=== PATIENT | male | born 1945 | race Caucasian/White ===

== ENCOUNTER 2019-08-22 08:14 | Inpatient (IN) ==
--- NOTE | 2019-08-22 08:34 | Emergency Department Note ---
SOB HPI - General Chief Complaint: Shortness of Breath/Dyspnea Stated Complaint: Sob/ cold symptoms Time Seen by Provider: 08/22/19 08:32 Source: patient Mode of arrival: ambulatory Limitations: no limitations - History of Present Illness This patient was just discharged from the emergency room 5 minutes ago and he does not feel like he would be able to make it at home on his own and comes back to be admitted for pneumonia. - Related Data Home Medications Medication Instructions Recorded Confirmed atorvastatin 40 mg tablet 40 mg PO QDAY 07/09/18 08/22/19 cetirizine 10 mg tablet 5 mg PO QDAY PRN 07/09/18 08/22/19 cholecalciferol (vitamin D3) 125 5,000 unit PO QDAY 07/09/18 08/22/19 mcg (5,000 unit) capsule cinnamon bark 500 mg capsule 500 mg PO DAILY 07/09/18 08/22/19 fenofibric acid (choline) 135 mg 135 mg PO QDAY 07/09/18 08/22/19 capsule,delayed release finasteride 5 mg tablet 5 mg PO QDAY 07/09/18 08/22/19 fluticasone propionate 50 1 spray INTRANASAL QDAY 07/09/18 08/22/19 mcg/actuation nasal spray,suspension folic acid 1 mg tablet 1 mg PO QDAY 07/09/18 08/22/19 glipizide 10 mg tablet 10 mg PO QDAY 07/09/18 08/22/19 hydrochlorothiazide 25 mg tablet 25 mg PO QDAY 07/09/18 08/22/19 levothyroxine 100 mcg capsule 100 mcg PO QDAY 07/09/18 08/22/19 lisinopril 10 mg tablet 10 mg PO QDAY 07/09/18 08/22/19 magnesium oxide 400 mg PO QDAY cap 07/09/18 08/22/19 metformin 1,000 mg tablet,extended 1,000 mg PO QPM 07/09/18 08/22/19 release 24hr metoprolol succinate 50 mg capsule 50 mg PO QDAY 07/09/18 08/22/19 sprinkle, ext. release 24 hr omeprazole 20 mg tablet,delayed 20 mg PO QDAY 07/09/18 08/22/19 release terazosin 5 mg capsule 5 mg PO QDAY 11/12/18 12/26/19 thiamine HCl (vitamin B1) 100 mg 100 mg PO QDAY 07/09/18 08/22/19 tablet Previous Rx's Medication Instructions Recorded Doxycycline Hyclate [Vibramycin] 100 mg PO BID #14 cap 08/22/19 Allergies Allergy/AdvReac Type Severity Reaction Status Date / Time shellfish derived Allergy Verified 08/22/19 08:15 Sulfa (Sulfonamide Allergy Hives Verified 08/22/19 08:15 Antibiotics) Review of Systems All systems ED: reviewed and negative except as stated. Past Medical History - Past Medical History Medical history: Reports: COPD - Social History smoking status: Current every day smoker Physical Exam Limitations: no limitations General appearance: alert Respiratory: Present: rales/crackles Neurological: Present: alert Psychiatric: Present: normal affect Skin: Present: warm, dry Course Vital Signs Temperature 97.6 F 08/22/19 08:15 Pulse Rate 106 H 08/22/19 08:15 Respiratory Rate 24 H 08/22/19 08:15 Blood Pressure 156/84 08/22/19 08:15 Pulse Oximetry (%) 96 08/22/19 08:15 Temperature 97.6 F 08/22/19 08:15 Pulse Rate 106 H 08/22/19 08:15 Respiratory Rate 24 H 08/22/19 08:15 Blood Pressure 156/84 08/22/19 08:15 Pulse Oximetry (%) 96 08/22/19 08:15 Disposition Pt seen by [facility]/PA only: No Clinical Impression: Community acquired pneumonia Disposition: Xfer As Outpt/Obs ([facility]) Condition: Good Time of Disposition: 08:34
[2019-08-22 09:49] LABS: C-Reactive Protein 2.8 mg/dl (0.0-0.8)
--- NOTE | 2019-08-22 10:02 | Internal Med History&Physical ---
Medical - H&P: [facility] Patient information: Note initiated : 08/22/19 at 10:00 am Service Date, if different from initiated Date: [] Patient: Moncho Domingo 74 y/o M admitted on 08/22/19 for Sob/ cold symptoms. Chief Complaint: [] History of present illness: Mr. Domingo is a 74 year old M Who presents the ED with 3 to 4 days of shortness of breath and coughing. Patient said he was admitted as [facility] year ago for pneumonia and states this feels similar. However, Looking at old [facility] records it was actually COPD admis velasquez which his current presentation looks more like. denies any fevers or chills or chest pain other than when he coughs. He states it started with a sore throat and went down into his chest. He has been coughing a lot but swallows his phlegm. Feels very weak. In the ED was evaluated diagnosed with pneumonia and discharged. However the patient went out to his car he felt he was just too debilitated and weak And unable to care for himself. He had significant shortness of breath while trying to walk to his car along with the severe weakness. Flu screen in the ED was negative. Oxygen got down to 89% in the ED. Review of Systems: Pertinent positives as above. Denies headache/fever/chills/nausea/vomiting/chest or abdominal pain//diarrhea. Main 10 point review of system reviewed negative Medical - H&P: PMH Medical history: Past medical history: Peripheral vascular disease with intervention in the left lower extremity by Dr. Barajas Diabetes CKD II COPD (no home O2) Tobacco abuse HTN/HLD Hypothyroidism GERD BPH Past surgical history: Stent to left lower extremity Eyelid surgery LASIK surgery Tonsillectomy Family history: States mother had thyroid disease and peptic ulcer disease Father's history unknown Social history: 3/4 DPD 4-5 drinks of liquor per day Lives by himself Medical - H&P: Meds Home Medications Medication Instructions Recorded Confirmed Type atorvastatin 40 mg tablet 40 mg PO QDAY 07/09/18 08/22/19 History cetirizine 10 mg tablet 5 mg PO QDAY PRN 07/09/18 08/22/19 History cholecalciferol (vitamin D3) 125 5,000 unit PO QDAY 07/09/18 08/22/19 History mcg (5,000 unit) capsule fenofibric acid (choline) 135 mg 135 mg PO QDAY 07/09/18 08/22/19 History capsule,delayed release finasteride 5 mg tablet 5 mg PO QDAY 07/09/18 08/22/19 History fluticasone propionate 50 1 spray INTRANASAL QDAY 07/09/18 08/22/19 History mcg/actuation nasal spray,suspension glipizide 10 mg tablet 10 mg PO QDAY 07/09/18 08/22/19 History hydrochlorothiazide 25 mg tablet 25 mg PO QDAY 07/09/18 08/22/19 History levothyroxine 100 mcg capsule 100 mcg PO QDAY 07/09/18 08/22/19 History lisinopril 10 mg tablet 10 mg PO QDAY 07/09/18 08/22/19 History magnesium oxide 400 mg PO QDAY cap 07/09/18 08/22/19 History metformin 1,000 mg tablet,extended 1,000 mg PO QPM 07/09/18 08/22/19 History release 24hr metoprolol succinate 50 mg capsule 50 mg PO QDAY 07/09/18 08/22/19 History sprinkle, ext. release 24 hr omeprazole 20 mg tablet,delayed 20 mg PO QDAY 07/09/18 08/22/19 History release terazosin 5 mg capsule 5 mg PO QDAY 07/09/18 08/22/19 History thiamine HCl (vitamin B1) 100 mg 100 mg PO QDAY 07/09/18 08/22/19 History tablet Allergies Allergy/AdvReac Type Severity Reaction Status Date / Time Sulfa (Sulfonamide Allergy Mild Hives Verified 08/22/19 10:01 Antibiotics) shellfish derived Allergy Unknown Unknown Verified 08/22/19 10:01 Medical - H&P: Exam - Constitutional Vitals: Temp Pulse Resp BP Pulse Ox 97.6 F 100 H 24 H 136/74 94 08/22/19 09:03 08/22/19 09:03 08/22/19 09:03 08/22/19 09:03 08/22/19 09:03 Exam: General: Alert, Awake, No acute Distress, obese Eyes/N/T: EOMI, PERRL, DMM Head/Neck: neck supple, normocephalic atraumatic CV: RRR, No murmurs, normal s1/s2 Pulm: b/l wheezing, mild rhonchi Abd: soft, nontender, +BS x4 Ext: no clubbing/cyanosis, 1+ b/l LE chronic edema Neuro: Alert, no focal deficits, moves all extremities, CN 2-12 grossly intact, symmetrical strength b/l upper/lower, sensations intact b/l upper/lower Skin: warm/dry Medical - H&P: Reslt - Impressions Chest x-ray with some scattered haziness, no jose luis focal filtrates Medical - H&P: A/P - Narrative A/P Narrative: A: *AECOPD (not on home O2): -PCT low *Hypoxia: improved to room air since ED *Tobacco abuse: *Leukopenia: likely related to viral illnes *Thrombocytopenia, chronic: acute on chronic likely related to infection *DM: *CKD II: *HTN/HLD: *Hypothyroidism: *GERD: *PVD w/intervention to LLE by Dr. Barajas in the past: *Obesity * P: -steroid(wean) -IS/Acapella, nebs/RT -Empiric, pending BC/SC, mrsa screen -resp viral panel -ABG -cont home ACEI/BB, hold hctz for now, prn IV meds -SSI - -pt/ot -ppx: lovenox/home ppi
[2019-08-22 10:12] LABS: Band Neutrophils % 1 % (0-10); Eosinophils % (Manual) 1 % (0-7); Lymphocytes % 37 % (15-49); Monocytes % (Manual) 12 % (1-12); Platelet Estimate DECREASED (NORMAL); RBC Morphology NORMAL (NORMAL); Segmented Neutrophils % 49 % (38-78)
[2019-08-22] MEDS ORDERED: IPRATROPIUM/ALBUTEROL 3 ML AMPUL.NEB NEB ONE (10:34)
[2019-08-22] MEDS ORDERED: DEXTROSE 31 GM ORAL.SUSP PO PRN (10:36)
[2019-08-22] MEDS ORDERED: POTASSIUM CHLORIDE 40 MEQ in DEXTROSE 5% IN WATER 500 ML IV PRN (10:36)
[2019-08-22] MEDS ORDERED: DEXTROSE 50% 50 ML VIAL IV PRN (10:36)
[2019-08-22] MEDS ORDERED: SENNOSIDES 1 TABLET PO PRN (10:36)
[2019-08-22] MEDS ORDERED: ONDANSETRON 4 MG/2 ML VIAL IV PRN (10:36)
[2019-08-22] MEDS ORDERED: ACETAMINOPHEN 325 MG TABLET PO PRN (10:36)
[2019-08-22] MEDS ORDERED: POTASSIUM CHLORIDE 20 MEQ TABLET PO PRN ×2 (10:36)
[2019-08-22] MEDS ORDERED: POLYETHYLENE GLYCOL 3350 17 GM PACKET PO PRN (10:36)
[2019-08-22] MEDS ORDERED: MAGNESIUM SULFATE 2 GM/50 ML BAG IV PRN (10:36)
[2019-08-22] MEDS ORDERED: ENALAPRILAT 1.25 MG/ML VIAL IV PRN (10:39)
[2019-08-22] MEDS ORDERED: hydrALAZINE 20 MG/ML VIAL IV PRN (10:39)
[2019-08-22 10:40] LABS: ABG Methemoglobin 0.3 % (0.4-1.5); VBG Base Excess -0.9 (-2.0-2.0); VBG Oxygen Saturation 90.1 % (40.0-70.0); VBG PCO2 46.5 mmHg (41.0-51.0); VBG PH 7.35 U (7.32-7.42); VBG PO2 81 mmHg (25-40); VBG Total CO2 26.4 mmol/L (25.0-29.0)
[2019-08-22] MEDS ORDERED: LORazepam 2 MG/ML VIAL IV PRN (10:40)
[2019-08-22] MEDS ORDERED: chlordiazePOXIDE 25 MG CAPSULE PO PRN (10:40)
[2019-08-22] MEDS ORDERED: methylPREDNISolone SOD SUCC 125 MG/2 ML VIAL IV SCH (10:42)
[2019-08-22] MEDS ORDERED: methylPREDNISolone SOD SUCC 125 MG/2 ML VIAL IV ONE (10:43)
[2019-08-22] MEDS ORDERED: 0.9 % SODIUM CHLORIDE 1,000 ML IV SCH (10:45)
--- NOTE | 2019-08-22 10:47 | Discharge Summary ---
Medical - DS: Prov Patient information: Note initiated : 08/22/19 at 10:45 am Service Date, if different from initiated Date: [] Patient: Moncho Domingo 74 y/o M admitted on 08/22/19 for Sob/ cold symptoms. Chief Complaint: [] Date of admission: 08/22/19 09:11 Discharge date: 08/23/19 Consults: 08/22/19 Consult to Physician [CONS] Stat Comment: Consulting Provider: Hudson Chang Reason For Exam: Physician to Consult Medical - DS: Meds - Discharge Medications Prescriptions: Azithromycin 500 mg PO DAILY #1 tab predniSONE [Prednisone] 10 mg PO [facility] #1 tab Active and Home Medications: Home Medications atorvastatin 40 mg tablet 40 mg PO QDAY 07/09/18 [History Confirmed 08/22/19 Last Taken 08/21/19 09:00] cetirizine 10 mg tablet 5 mg PO QDAY PRN 07/09/18 [History Confirmed 08/22/19 Last Taken 08/21/19 21:00] cholecalciferol (vitamin D3) 125 mcg (5,000 unit) capsule 5,000 unit PO QDAY 07/09/18 [History Confirmed 08/22/19 Last Taken 08/21/19 09:00] fenofibric acid (choline) 135 mg capsule,delayed release 135 mg PO QDAY 07/09/18 [History Confirmed 08/22/19 Last Taken 08/21/19 09:00] finasteride 5 mg tablet 5 mg PO QDAY 07/09/18 [History Confirmed 08/22/19 Last Taken 08/21/19 09:00] fluticasone propionate 50 mcg/actuation nasal spray,suspension 1 spray INTRANASAL QDAY 07/09/18 [History Confirmed 08/22/19 Last Taken 08/21/19 09:00] glipizide 10 mg tablet 10 mg PO QDAY 07/09/18 [History Confirmed 08/22/19 Last Taken 08/21/19 21:00] hydrochlorothiazide 25 mg tablet 25 mg PO QDAY 07/09/18 [History Confirmed 08/22/19 Last Taken 08/21/19 09:00] levothyroxine 100 mcg capsule 100 mcg PO QDAY 07/09/18 [History Confirmed 08/22/19 Last Taken 08/21/19 09:00] lisinopril 10 mg tablet 10 mg PO QDAY 07/09/18 [History Confirmed 08/22/19 Last Taken Unknown] magnesium oxide 400 mg PO QDAY cap 07/09/18 [History Confirmed 08/22/19 Last Taken Unknown] metformin 1,000 mg tablet,extended release 24hr 1,000 mg PO QPM 07/09/18 [History Confirmed 08/22/19 Last Taken Unknown] metoprolol succinate 50 mg capsule sprinkle, ext. release 24 hr 50 mg PO QDAY 07/09/18 [History Confirmed 08/22/19 Last Taken Unknown] omeprazole 20 mg tablet,delayed release 20 mg PO QDAY 07/09/18 [History Confirmed 08/22/19 Last Taken Unknown] terazosin 5 mg capsule 5 mg PO QDAY 07/09/18 [History Confirmed 08/22/19 Last Taken Unknown] thiamine HCl (vitamin B1) 100 mg tablet 100 mg PO QDAY 07/09/18 [History Confirmed 08/22/19 Last Taken Unknown] Home Medications atorvastatin 40 mg tablet 40 mg PO QDAY 07/09/18 [History Confirmed 08/22/19 Last Taken 08/21/19 09:00] cetirizine 10 mg tablet 5 mg PO QDAY PRN 07/09/18 [History Confirmed 08/22/19 Last Taken 08/21/19 21:00] cholecalciferol (vitamin D3) 125 mcg (5,000 unit) capsule 5,000 unit PO QDAY 07/09/18 [History Confirmed 08/22/19 Last Taken 08/21/19 09:00] fenofibric acid (choline) 135 mg capsule,delayed release 135 mg PO QDAY 07/09/18 [History Confirmed 08/22/19 Last Taken 08/21/19 09:00] finasteride 5 mg tablet 5 mg PO QDAY 07/09/18 [History Confirmed 08/22/19 Last Taken 08/21/19 09:00] fluticasone propionate 50 mcg/actuation nasal spray,suspension 1 spray INTRANASAL QDAY 07/09/18 [History Confirmed 08/22/19 Last Taken 08/21/19 09:00] glipizide 10 mg tablet 10 mg PO QDAY 07/09/18 [History Confirmed 08/22/19 Last Taken 08/21/19 21:00] hydrochlorothiazide 25 mg tablet 25 mg PO QDAY 07/09/18 [History Confirmed 08/22/19 Last Taken 08/21/19 09:00] levothyroxine 100 mcg capsule 100 mcg PO QDAY 07/09/18 [History Confirmed 08/22/19 Last Taken 08/21/19 09:00] lisinopril 10 mg tablet 10 mg PO QDAY 07/09/18 [History Confirmed 08/22/19 Last Taken 08/21/19 09:00] magnesium oxide 400 mg PO QDAY cap 07/09/18 [History Confirmed 08/22/19 Last Taken 08/21/19 09:00] metformin 1,000 mg tablet,extended release 24hr 1,000 mg PO QPM 07/09/18 [History Confirmed 08/22/19 Last Taken 08/21/19 21:00] metoprolol succinate 50 mg capsule sprinkle, ext. release 24 hr 50 mg PO QDAY 07/09/18 [History Confirmed 08/22/19 Last Taken 08/21/19 09:00] omeprazole 20 mg tablet,delayed release 20 mg PO QDAY 07/09/18 [History Confirmed 08/22/19 Last Taken 08/21/19 09:00] terazosin 5 mg capsule 5 mg PO QDAY 07/09/18 [History Confirmed 08/22/19 Last Taken 08/21/19 21:00] thiamine HCl (vitamin B1) 100 mg tablet 100 mg PO QDAY 07/09/18 [History Confirmed 08/22/19 Last Taken 08/21/19 09:00] Azithromycin 500 mg PO DAILY #1 tab 08/22/19 [Rx Last Taken Unknown] B-Complex with Vitamin C [Vitamin B-Complex with Vit C] 1 each PO DAILY 08/22/19 [History Confirmed 08/22/19 Last Taken 08/21/19 09:00] Metoprolol Succinate [Toprol Xl] 25 mg PO HS 08/22/19 [History Confirmed 08/22/19 Last Taken 08/21/19 21:00] predniSONE [Prednisone] 10 mg PO [facility] #1 tab 08/22/19 [Rx Last Taken Unknown] Medical - DS: Hosp Hospital Course: Mr. Domingo is a 74 year old M Who presents the ED with 3 to 4 days of shortness of breath and coughing. Patient said he was admitted as [facility] year ago for pneumonia and states this feels similar. However, Looking at old [facility] records it was actually COPD admission which his current presentation looks more like. denies any fevers or chills or chest pain other than when he coughs. He states it started with a sore throat and went down into his chest. He has been coughing a lot but swallows his phlegm. Feels very weak. In the ED was evaluated diagnosed with pneumonia and discharged. However the patient went out to his car he felt he was just too debilitated and weak And unable to care for himself. He had significant shortness of breath while trying to walk to his car along with the severe weakness. Flu screen in the ED was negative. Oxygen got down to 89% in the ED. 08/23 Patient now on room air for most of the night. Doing great improved cough. Feels like his shortness of breath is near normal. No new complaints and desires to go home. Patient responded quicker than expected to treatment and is surprisingly doing well on room air ambulating. A: *AECOPD (not on home O2): -PCT low -resp viral panel neg *Acute on chronic hypoxic resp failure: 84% on floor after transfer from ED -now back on room air *Tobacco abuse: *Leukopenia: likely related to viral illness -Improved *Thrombocytopeniam mild, chronic: acute on chronic likely related to infection -stable *DM: *CKD II: *HTN/HLD: *Hypothyroidism: *GERD: *PVD w/intervention to LLE by Dr. Barajas in the past: *Obesity * Discharge diagnosis: COPD exacerbation tobacco abuse Secondary discharge diagnosis: Diabetes chronic disease hypertension hypothyroidism GERD peripheral vascular disease obesity - Time Spent with Patient Total time spent providing and/or coordinating discharge services: Greater than 30 minutes Medical - DS: Exam - Constitutional Vitals: Vital Signs Temp Pulse Pulse Resp BP BP Pulse Ox 08/22/19 09:11 97.7 F 98 H 18 147/81 93 08/22/19 09:03 97.6 F 100 H 24 H 136/74 94 08/22/19 08:49 100 H 136/74 94 08/22/19 08:46 99 H 136/74 94 08/22/19 08:32 102 H 114/90 93 08/22/19 08:29 103 H 156/84 93 08/22/19 08:15 97.6 F 106 H 24 H 156/84 96 Intake and Output 08/21/19 08/22/19 08/22/19 21:59 05:59 13:59 Other: Weight 95.254 kg Patient Weight 08/23/19 05:59 Weight 95.254 kg Medical - DS: Data Labs on day of discharge: Labs from last 24 hours 08/22/19 08/22/19 08/22/19 10:11 08:35 08:35 Total Counted Seg Neutrophils % Band Neutrophils % Lymphocytes % Monocytes % (Manual) Eosinophils % (Manual) Platelet Estimate RBC Morphology ABG Methemoglobin 0.3 L VBG pH 7.35 VBG pCO2 46.5 VBG pO2 81 H VBG HCO3 25.0 VBG Total CO2 26.4 VBG O2 Saturation 90.1 H VBG Base Excess -0.9 Carboxyhemoglobin 4.5 H Total Hemoglobin 11.0 L O2 Delivery Level Not Reportable C-Reactive Protein 2.8 H Procalcitonin < 0.10 08/22/19 08:35 Total Counted 100 Seg Neutrophils % 49 Band Neutrophils % 1 Lymphocytes % 37 Monocytes % (Manual) 12 Eosinophils % (Manual) 1 Platelet Estimate Decreased A RBC Morphology Normal ABG Methemoglobin VBG pH VBG pCO2 VBG pO2 VBG HCO3 VBG Total CO2 VBG O2 Saturation VBG Base Excess Carboxyhemoglobin Total Hemoglobin O2 Delivery Level C-Reactive Protein Procalcitonin Medical - DS: A/P - Patient/Caregiver Discharge Instructions Activity: increase activity as tolerated Diet: Consistent Carbohydrate Prescriptions: Azithromycin 500 mg PO DAILY #1 tab predniSONE [Prednisone] 10 mg PO [facility] #1 tab - Follow up Plan Disposition: Home, Self-Care Prognosis: Fair Rehab Potential: Fair Overall status at discharge: patient is progressing back to baseline
[2019-08-22] MEDS: ENOXAPARIN 40 MG/0.4 ML SYRINGE SQ SCH (11:03)
[2019-08-22] MEDS: AZITHROMYCIN 500 MG in DEXTROSE 5% IN WATER 250 ML IV SCH (11:22)
[2019-08-22] MEDS: INSULIN LISPRO 1 UNIT/0.01 ML UNIT SQ SCH ×3 (12:07→20:37)
[2019-08-22] MEDS: IPRATROPIUM/ALBUTEROL 3 ML AMPUL.NEB NEB SCH ×2 (12:44→18:10)
[2019-08-22] MEDS: methylPREDNISolone SOD SUCC 40 MG/ML VIAL IV SCH ×2 (13:44→22:20)
[2019-08-22] MEDS: 0.9 % SODIUM CHLORIDE 10 ML SYRINGE IV SCH ×2 (13:44→22:20)
[2019-08-22] MEDS: DOCUSATE SODIUM 100 MG CAPSULE PO SCH (20:37)
[2019-08-22] MEDS ORDERED: METOPROLOL SUCCINATE 25 MG TAB.XL.24H PO SCH (21:00)
[2019-08-22] MEDS ORDERED: metFORMIN 500 MG TAB.XL.24H PO SCH (21:00)
[2019-08-23] MEDS: IPRATROPIUM/ALBUTEROL 3 ML AMPUL.NEB NEB SCH ×2 (01:11→07:35)
[2019-08-23] MEDS: methylPREDNISolone SOD SUCC 40 MG/ML VIAL IV SCH (05:41)
[2019-08-23] MEDS: 0.9 % SODIUM CHLORIDE 10 ML SYRINGE IV SCH (05:41)
[2019-08-23 06:10] LABS: Basophils # (Auto) 0 K/mcL (0.0-0.3); Basophils % (Auto) 0.1 % (0.0-2.0); Eosinophils # (Auto) 0 K/mcL (0.0-0.7); Eosinophils % (Auto) 0.1 % (0.0-7.0); Granulocytes % (Auto) 73.5 % (38.0-78.0); Hematocrit 32.7 % (41.0-55.0); Lymphocytes # (Auto) 0.9 K/mcL (1.5-4.8); Lymphocytes % (Auto) 20.3 % (15.5-49.0); Mean Cell Volume 94.5 fL (80.0-100.0); Mean Corpuscular HGB Conc 33.5 g/dL (31.0-36.0); Mean Platelet Volume 8.2 fL (7.4-10.4); Monocytes # (Auto) 0.3 K/mcL (0.1-0.9); Platelet Count 119 K/mcL (140-440); RBC 3.46 M/mcL (4.50-5.90); Red Cell Distribution Width 12.9 % (11.5-14.5); WBC 4.6 K/mcL (4.5-11.0)
[2019-08-23 06:16] LABS: ALT/SGPT 13 U/l (0-40); AST/SGOT 28 U/l (0-37); Albumin 3.9 gm/dL (3.2-5.2); Albumin/Globulin Ratio 1.6 (1.0-2.3); Alkaline Phosphatase 50 U/L (39-117); Bilirubin,Direct < 0.2 mg/dL (0.0-0.3); Bilirubin,Total 0.2 mg/dL (0.0-1.0); Blood Urea Nitrogen 16 mg/dl (8-23); C-Reactive Protein 1.5 mg/dl (0.0-0.8); Calcium 9.2 mg/dl (8.6-10.4); Carbon Dioxide 19 mmol/L (22-30); Chloride 105 mmol/L (96-108); Globulin 2.4 gm/dL (2.2-3.7); Glomerular Filtration Rate 84; Glucose 208 mg/dL (70-105); Lactate Dehydrogenase 160 U/L (94-250); Phosphorous 2.9 mg/dL (2.7-4.5); Triglycerides 162 mg/dl (<150); Uric Acid 5.1 mg/dL (2.5-8.0)
--- NOTE | 2019-08-23 07:03 | Internal Med Progress Note ---
Medical - PN: Subj Patient information: Note initiated : 08/23/19 at 6:59 am Service Date, if different from initiated Date: [] Patient: Moncho Domingo 74 y/o M admitted on 08/22/19 for Sob/ cold symptoms. Chief Complaint: [] Interval history: Mr. Domingo is a 74 year old M Who presents the ED with 3 to 4 days of shortness of breath and coughing. Patient said he was admitted as [facility] year ago for pneumonia and states this feels similar. However, Looking at old [facility] records it was actually COPD admission which his current presentation looks more like. denies any fevers or chills or chest pain other than when he coughs. He states it started with a sore throat and went down into his chest. He has been cou ghing a lot but swallows his phlegm. Feels very weak. In the ED was evaluated diagnosed with pneumonia and discharged. However the patient went out to his car he felt he was just too debilitated and weak And unable to care for himself. He had significant shortness of breath while trying to walk to his car along with the severe weakness. Flu screen in the ED was negative. Oxygen got down to 89% in the ED. But the floor he went down to 84% on room air. 08/23 Patient now on room air for most of the night. Doing great improved cough. Feels like his shortness of breath is near normal. No new complaints and desires to go home. Patient responded quicker than expected. Review of Systems: denies headache/fever/chills/nausea/vomiting/chest or abdominal pain//diarrhea. Otherwise see above. - Constitutional Vitals: Vital Signs Temp Pulse Resp BP Pulse Ox 97.7 F 79 18 144/77 95 08/23/19 03:00 08/23/19 03:00 08/23/19 03:00 08/23/19 03:00 08/23/19 03:00 Period Temp Pulse Resp BP Sys/Kamara Pulse Ox Last 24 Hr 97.6 F-98.5 F 79-110 16-24 114-156/68-99 90-96 Intake and Output 08/22/19 08/23/19 08/23/19 21:59 05:59 13:59 Intake Total 600 1910 Balance 600 1910 Weight 97.069 kg Intake & Output: Intake & Output 08/22/19 08/23/19 08/23/19 21:59 05:59 13:59 Intake Total 600 1910 Balance 600 0 Weight 97.069 kg Intake: IV 1000 Sodium Chloride 0.9% 1,000 ml @ 1000 100 mls/hr IV .Q10H EROS Rx#: [id number] Oral 600 910 Other: # Voids 1 1 Exam: General: Alert, Awake, No acute Distress, obese Eyes/N/T: EOMI, Head/Neck: neck supple, CV: RRR, No murmurs, Pulm: minimal b/l wheezing, no rhonchi Abd: soft, nontender, +BS x4 Ext: no clubbing/cyanosis, 1+ b/l LE chronic edema Neuro: Alert, no focal deficits, moves all extremities, Skin: warm/dry Medical - PN: Obj Da - Labs CBC & Chem 7: 08/23/19 04:35 08/23/19 04:35 Labs: Abnormal Lab Results 08/23/19 08/23/19 08/22/19 04:35 04:35 10:11 RBC 3.46 L Hgb 11.0 L Hct 32.7 L Plt Count 119 L Lymph # (Auto) 0.9 L Platelet Estimate ABG Methemoglobin 0.3 L VBG pO2 81 H VBG O2 Saturation 90.1 H Carboxyhemoglobin 4.5 H Total Hemoglobin 11.0 L Carbon Dioxide 19 L Glucose 208 H C-Reactive Protein 1.5 H Triglycerides 162 H 08/22/19 08/22/19 08:35 08:35 RBC Hgb Hct Plt Count Lymph # (Auto) Platelet Estimate Decreased A ABG Methemoglobin VBG pO2 VBG O2 Saturation Carboxyhemoglobin Total Hemoglobin Carbon Dioxide Glucose C-Reactive Protein 2.8 H Triglycerides Meds: Medications Acetaminophen (Tylenol) 650 mg PO Q6HP PRN PRN Reason: PAIN/FEVER > 101 Albuterol/Ipratropium (Duoneb) 3 ml NEB Q6HRT [facility] Last Admin: 08/23/19 01:11 Dose: 3 ml Documented by: Atorvastatin Calcium (Lipitor) 40 mg PO QDAY [facility] Chlordiazepoxide HCl (Librium) 25 mg PO Q4HP PRN PRN Reason: Alcohol Withdrawal Dextrose (Dextrose 50%) 0 ml IV UD PRN PRN Reason: Hypoglycemia Diagnostic Test (Pha) (Accu-Chek) 1 each FS ACHS [facility] Last Admin: 08/22/19 20:37 Dose: 1 each Documented by: Docusate Sodium (Colace) 100 mg PO BID [facility] Last Admin: 08/22/19 20:37 Dose: 100 mg Documented by: Enalaprilat (Vasotec) 0 mg IV Q2HP PRN PRN Reason: Hypertension Enoxaparin Sodium (Lovenox) 40 mg SQ DAILY [facility] Last Admin: 08/22/19 11:03 Dose: 40 mg Documented by: Finasteride (Proscar) 5 mg PO QDAY [facility] Glipizide (Glucotrol) 10 mg PO QAMAC [facility] Glucose (Insta-Glucose) 15 gm PO PRN PRN PRN Reason: Hypoglycemia Hydralazine HCl (Apresoline) 0 mg IV Q2HP PRN PRN Reason: Hypertension Potassium Chloride 40 meq/ (Dextrose) 520 mls @ 130 mls/hr IV UD PRN PRN Reason: Potassium < 3 Magnesium Sulfate (Magnesium Sulfate) 2 gm in 50 mls @ 50 mls/hr IV UD PRN PRN Reason: Magnesium </= 1.6 Azithromycin 500 mg/ Dextrose 250 mls @ 250 mls/hr IV Q24H [facility]; Protocol Stop: 08/24/19 11:59 Last Infusion: 08/22/19 12:30 Dose: Infused Documented by: Insulin Human Lispro (Humalog) 0 unit SQ [facility]; Protocol Last Admin: 08/22/19 20:37 Dose: 12 unit Documented by: Levothyroxine Sodium (Synthroid) 100 mcg PO ACB [facility] Lisinopril (Zestril) 10 mg PO QDAY [facility] Lorazepam (Ativan) 0 mg IV Q4HP PRN; Protocol PRN Reason: Alcohol Withdrawal Magnesium Oxide (Magnesium Oxide) 400 mg PO DAILY [facility] Metformin HCl (Glucophage) 1,000 mg PO QPM [facility] Last Admin: 08/22/19 20:37 Dose: 1,000 mg Documented by: Methylprednisolone Sodium Succinate (Solu-Medrol) 40 mg IV Q8 [facility] Last Admin: 08/23/19 05:41 Dose: 40 mg Documented by: Metoprolol Succinate (Toprol Xl) 50 mg PO DAILY [facility] Metoprolol Succinate (Toprol Xl) 25 mg PO HS [facility] Last Admin: 08/22/19 20:37 Dose: 25 mg Documented by: Omeprazole (Prilosec) 20 mg PO QAMAC [facility] Ondansetron HCl (Zofran) 4 mg IV Q4HP PRN PRN Reason: Nausea And Vomiting Fenofibric Acid ( Choline) [Trilipix] 135 Mg Tab 1 dose PO QDAY [facility] Polyethylene Glycol (Miralax) 17 gm PO DAILYP PRN PRN Reason: Constipation Potassium Chloride (Kdur) 40 meq PO UD PRN PRN Reason: Potssium is 3-3.5 Potassium Chloride (Kdur) 40 meq PO UD PRN PRN Reason: Potassium < 3 Senna (Senokot) 2 tab PO DAILYP PRN PRN Reason: Constipation Sodium Chloride (Saline Flush) 10 ml IV Q8 [facility] Last Admin: 08/23/19 05:41 Dose: 10 ml Documented by: Terazosin HCl (Hytrin) 5 mg PO QDAY [facility] - ABG Interpretation ABG results: 08/22/19 10:11 ABG Methemoglobin 0.3 L VBG pH 7.35 VBG pCO2 46.5 VBG pO2 81 H VBG HCO3 25.0 VBG Total CO2 26.4 VBG O2 Saturation 90.1 H VBG Base Excess -0.9 Medical - PN: A/P - Time Spent With Patient Total time spent is greater than 50% in coordination of care (as documented) at patient's floor/unit and/or counseling patient: - Narrative A/P Narrative: A: *AECOPD (not on home O2): -PCT low -resp viral panel neg *Acute on chronic hypoxic resp failure: 84% on floor after transfer from ED -now back on room air *Tobacco abuse: *Leukopenia: likely related to viral illness -Improved *Thrombocytopeniam mild, chronic: acute on chronic likely related to infection -stable *DM: *CKD II: *HTN/HLD: *Hypothyroidism: *GERD: *PVD w/intervention to [facility] by Dr. Barajas in the past: *Obesity * P: -steroid(wean) -IS/Acapella, nebs/RT -Empiric, pending BC/SC, mrsa screen -cont home ACEI/BB, hold hctz for now, prn IV meds -SSI - -pt/ot -ppx: kenroy
[2019-08-23] MEDS ORDERED: glipiZIDE 5 MG TABLET PO SCH (07:30)
[2019-08-23] MEDS ORDERED: LEVOTHYROXINE 100 MCG TABLET PO SCH (07:30)
[2019-08-23] MEDS ORDERED: OMEPRAZOLE 20 MG CAPSULE PO SCH (07:30)
[2019-08-23] MEDS: INSULIN LISPRO 1 UNIT/0.01 ML UNIT SQ SCH (08:20)
[2019-08-23] MEDS ORDERED: TERAZOSIN 5 MG CAPSULE PO SCH (09:00)
[2019-08-23] MEDS ORDERED: FINASTERIDE 5 MG TABLET PO SCH (09:00)
[2019-08-23] MEDS ORDERED: ATORVASTATIN 40 MG TABLET PO SCH (09:00)
[2019-08-23] MEDS ORDERED: METOPROLOL SUCCINATE 50 MG TAB.XL.24H PO SCH (09:00)
[2019-08-23] MEDS ORDERED: FENOFIBRIC ACID 135 MG PO SCH (09:00)
[2019-08-23] MEDS ORDERED: LISINOPRIL 10 MG TABLET PO SCH (09:00)
[2019-08-23] MEDS ORDERED: MAGNESIUM OXIDE 400 MG TABLET PO SCH (09:00)
[2019-08-23] MEDS: DOCUSATE SODIUM 100 MG CAPSULE PO SCH (10:04)
[2019-08-23] MEDS: ENOXAPARIN 40 MG/0.4 ML SYRINGE SQ SCH (10:04)
[2019-08-23] MEDS: AZITHROMYCIN 500 MG in DEXTROSE 5% IN WATER 250 ML IV SCH (10:12)
== END 2019-08-23 12:05 | disposition home or self-care (01) | DRG 190 ==
LOC: MEDSUR 08:14 → ED 08:14 → OBSVTOIN 09:11 → MEDSUR 09:11
PROVIDERS: ADMIT Internal Medicine; ATTEND Internal Medicine